=== PATIENT | male | born 1965 | race Caucasian/White ===

== ENCOUNTER 2022-05-31 19:45 | Emergency (ER) | payer SELFPAY ==
[~2022-05-31] VITALS: Ht 182.9 cm; Wt 131.0 kg
[2022-05-31] MEDS ORDERED: NORVASC5 M1 PO (20:18)
[2022-05-31] MEDS ORDERED: LISINOPRIL10 MG PO (20:19)
[2022-05-31 20:25] LABS: HEMOGLOBIN 15.4 g/dl (14.0-18.0); IMMATURE GRANULOCYTES 0.2 % (0.0-5.0); MEAN CELL VOLUME 89.5 fL CALC (80.0-100.0); MEAN CORPUSCULAR HGB CONC 33.5 g/dL CAL (32.0-36.0); NEUT# 12.06 thou/uL (1.82-7.42); RED BLOOD COUNT 5.14 mill/uL (4.70-6.10); RED CELL DISTRI WIDTH 12.6 % (11.5-15.5)
[2022-05-31 20:42] LABS: URINE BILIRUBIN - DIPSTICK NEGATIVE (NEGATIVE); URINE BLOOD DIPSTICK LARGE (NEGATIVE); URINE GLUCOSE - DIPSTICK NEGATIVE (NEGATIVE); URINE KETONE NEGATIVE (NEGATIVE); URINE LEUK ESTERASE NEGATIVE (NEGATIVE); URINE NITRITE - DIPSTICK NEGATIVE (Negative); URINE PROTEIN - DIPSTICK TRACE mg/dL (NEG-TRACE); URINE SPECIFIC GRAVITY >=1.030; URINE UROBILINOGEN - DIPSTICK 0.2 E.U./dL (0.2)
[2022-05-31 20:43] LABS: URINE COLOR DK. YELLOW
[2022-05-31 20:48] LABS: URINE RBC 50-100 RBC/hpf (0-5)
[2022-05-31 21:30] VITALS: BP 144/95
[2022-05-31] MEDS ORDERED: KEFLEX500 MG PO (21:55)
[2022-05-31] MEDS ORDERED: TAMSULOSIN0.4 MG PO (21:55)
[2022-05-31] MEDS ORDERED: PERCOCET 5/325M1 TAB PO (21:55)
[2022-05-31 22:00] VITALS: BP 144/98
[2022-05-31 22:19] VITALS: BP 144/98
[2022-05-31 22:30] LABS: ALBUMIN 4.4 g/dL (3.2-5.0); ALKALINE PHOSPHATASE 56 u/l (38-126); ANION GAP 12 (6-22 (CALC)); BILIRUBIN, TOTAL 0.4 mg/dL (0.0-1.4); BUN 17 mg/dL (9-20); BUN/CREATININE RATIO 15 (12-20 (CALC)); CARBON DIOXIDE 24 mmol/l (22-30); CHLORIDE 105 mmol/l (95-108); CREATININE 1.1 mg/dL (0.7-1.3); GFR FOR AFR.AMER. > 60 ML/MIN (>=60 (CALC)); GFR OTHER RACES > 60 ML/MIN (>=60 (CALC)); POTASSIUM 3.9 mmol/l (3.5-5.1); SGOT/AST 37 u/l (17-59); SODIUM 137 mmol/l (137-146); TOTAL PROTEIN 7.5 g/dL (6.3-8.2)
== END 2022-05-31 22:22 | disposition home or self-care (01) | DRG 694 ==
LOC: ED 19:45
PROVIDERS: Emergency Medicine
DX: N13.2 Hydronephrosis with renal and ureteral calculous obstruction (principal); I10 Essential (primary) hypertension; Z87.442 Personal history of urinary calculi